=== PATIENT | male | born 1990 | race Caucasian/White ===

== ENCOUNTER 2016-07-02 20:16 | Emergency (ER) | payer MEDICAID ==
[~2016-07-02] VITALS: Ht 188 cm; Wt 99.8 kg
--- NOTE | 2016-07-02 20:18 | NUR ---
Patient to ER bed 1 to gown for evaluation. Side rails up. Report given to MISAEL BARBOSA.
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
--- NOTE | 2016-07-02 20:27 | NUR ---
ER MD Gould at bedside for evaluation
[2016-07-02 20:28] VITALS: BP_SYST 140
[2016-07-02] MEDS ORDERED: LevALBUTEROL HCL 1.25 MG/0.5 ML *CONC.* VIAL.NEB (XOPENEX CONC.) INH ONE (21:00)
[2016-07-02 21:15] LABS: BASOPHILS # (AUTO) 0.1 K/uL (0.0-0.2); BASOPHILS % (AUTO) 1.2 % (0.0-2.0); EOSINOPHILS # (AUTO) 0.3 K/uL (0.0-0.4); EOSINOPHILS % (AUTO) 2.7 % (0.0-4.0); HEMATOCRIT 42.5 % (36-54); HEMOGLOBIN 14.3 g/dL (14.0-18.0); LYMPHOCYTES # (AUTO) 2.5 K/uL (1.0-5.5); LYMPHOCYTES % (AUTO) 26.1 % (20.5-51.5); MEAN CORPUSCULAR HEMOGLOBIN 31 pg (27-31); MEAN CORPUSCULAR HGB CONC 34 % (32-36); MEAN CORPUSCULAR VOLUME 91 fL (79.0-98.0); MONOCYTES % (AUTO) 10.2 % (1.7-9.3); NEUTROPHILS # (AUTO) 5.8 K/uL (1.8-7.7); NEUTROPHILS % (AUTO) 59.8 % (40.0-70.0); RED BLOOD CELL COUNT(AUTO) 4.66 MIL/uL (4.2-6.2); RED CELL DISTRIBUTION WIDTH 12.9 % (9.0-15.0); WHITE BLOOD COUNT (AUTO) 9.7 K/uL (4.8-10.8)
[2016-07-02 21:27] LABS: PLATELET COUNT (AUTO) 173 K/uL (130-430)
[2016-07-02 21:31] LABS: CALCIUM 8.3 mg/dL (8.4-11.0); CREATININE 1.13 mg/dL (0.55-1.30); POTASSIUM 3.8 mmol/L (3.5-5.1)
[2016-07-02 21:36] LABS: ALBUMIN 3.5 g/dL (3.4-4.8); TOTAL PROTEIN, SERUM 6.9 g/dL (6.4-8.3)
--- NOTE | 2016-07-02 21:43 | NUR ---
Patient calm, no signs of acute distress. Friend at bedside
[2016-07-02] MEDS ORDERED: LORazepam 1 MG TABLET PO ONE (22:15)
--- NOTE | 2016-07-02 22:19 | NUR ---
Patient calm in bed, no signs of acute distress. Friend at bedside
[2016-07-02 23:20] VITALS: BP_SYST 125
--- NOTE | 2016-07-02 23:20 | NUR ---
Patient given written and verbal discharge instructions and verbalizes understanding. ER MD Gould discussed with patient the results and treatment provided. Patient in stable condition. ID arm band removed. Rx of xanax given. Patient educated on pain management and to follow up with PMD. Pain Scale 0/10. Opportunity for questions provided and answered.
== END 2016-07-02 23:20 | disposition home or self-care (01) ==
LOC: SED 20:16
DX: F41.9 Anxiety disorder, unspecified (principal)
CPT/HCPCS: 36415; 71020-TC; 80053; 85025; 94150; 94640; 99285